=== PATIENT | female | born 1945 | race Caucasian/White ===

== ENCOUNTER 2022-07-07 08:40 | Outpatient (CLI) | payer MEDICARE ==
[2022-07-07 10:38] LABS: Hemoglobin 12.9 g/dL (12.0-15.5); Mean Corpuscular HGB CONC 32.1 g/dL (32.0-36.0); Mean Corpuscular Hemoglobin 29.1 pg (27.0-33.0); Mean Corpuscular Volume 90.5 fl (81.6-98.3); Mean Platelet Volume 10.7 fl (7.4-10.4); Platelet Count 254 10x3/uL (150-450); Red Blood Cell (RBC) Count 4.44 10x6/uL (3.90-5.03); White Blood Cell (WBC) Count 9.1 10x3/uL (3.5-10.5)
[2022-07-07 10:45] LABS: Anion Gap 19 mmol/L (10-20); BUN (Urea Nitrogen) 23 mg/dL (9.8-20.1); Calc. Creatinine Clearance 0 mL/min (70-130); Calcium 9.5 mg/dL (7.8-10.44); Carbon Dioxide 21 mmol/L (23-31); Chloride 103 mmol/L (98-107); Estimated GFR 79; Glucose 92 mg/dL (83-110); Potassium 4.9 mmol/L (3.5-5.1); Sodium 138 mmol/L (136-145)
== END 2022-07-07 08:41 | disposition home or self-care (01) ==
LOC: CSHLAB 08:40
PROVIDERS: ATTEND Otolaryngology Plastic Surgery within the Head & Neck
DX: Z01.818 Encounter for other preprocedural examination (principal); R13.10 Dysphagia, unspecified; K14.8 Other diseases of tongue
CPT/HCPCS: 80048; 85027; 93005; 93010

== ENCOUNTER 2022-07-12 05:39 | Day surgery (SDC) | payer MEDICARE ==
[2022-07-07 10:45] VITALS: BMI 29.2
[2022-07-12] MEDS ORDERED: Oxymetazoline HCl 0.05% ( 15 ML ) ONE (06:34)
[2022-07-12] MEDS ORDERED: Lidocaine 4% Topical Sol 50 ML BOT ONE (06:34)
[2022-07-12] MEDS ORDERED: SUGAMMADEX SODIUM 200 MG/2 ML VIAL ONE (06:53)
[2022-07-12] MEDS ORDERED: Fentanyl 100 MCG/2 ML VIAL ONE (08:36)
[2022-07-12] MEDS ORDERED: Rocuronium Bromide 10 MG/ML (10ML VIAL) ONE (08:36)
[2022-07-12] MEDS ORDERED: Dexamethasone 20 MG/5 ML VIAL ONE (08:36)
[2022-07-12] MEDS ORDERED: Midazolam HCl 2 mg/2 ml Vial ONE (08:36)
[2022-07-12] MEDS ORDERED: Ondansetron PF 4 MG/2 ML Vial ONE (08:36)
[2022-07-12] MEDS ORDERED: PROPOFOL 20 ML ONE (08:36)
[2022-07-12] MEDS ORDERED: Lidocaine 1% PF 5 ML VIAL ONE (08:36)
[2022-07-12] MEDS ORDERED: Lidocaine 1% w/Epinephrine 1:100K 20 ML VIAL ONE (09:35)
== END 2022-07-12 11:20 | disposition home or self-care (01) ==
LOC: CSHSDC 05:39
PROVIDERS: ATTEND Otolaryngology Plastic Surgery within the Head & Neck
PROC: 0CB70ZZ Excision of Tongue, Open Approach (ICD-10-PCS; principal; 2022-07-12)
DX: C02.9 Malignant neoplasm of tongue, unspecified (principal); K14.8 Other diseases of tongue; K14.0 Glossitis; I10 Essential (primary) hypertension; F32.A Depression, unspecified; E11.9 Type 2 diabetes mellitus without complications; Z79.82 Long term (current) use of aspirin; Z79.84 Long term (current) use of oral hypoglycemic drugs; Z79.899 Other long term (current) drug therapy; Z85.3 Personal history of malignant neoplasm of breast
CPT/HCPCS: 36416; 88309; J1100; J2250; J2405; J2704; J3010

== ENCOUNTER 2022-09-15 08:40 | Outpatient (CLI) | payer MEDICARE ==
[2022-09-15 10:11] LABS: Hemoglobin 13.7 g/dL (12.0-15.5); Mean Corpuscular HGB CONC 32.5 g/dL (32.0-36.0); Mean Corpuscular Hemoglobin 29.1 pg (27.0-33.0); Mean Corpuscular Volume 89.6 fl (81.6-98.3); Mean Platelet Volume 9.8 fl (7.4-10.4); Platelet Count 274 10x3/uL (150-450); RBC Distribution Width 12.4 % (11.5-14.5); Red Blood Cell (RBC) Count 4.71 10x6/uL (3.90-5.03); White Blood Cell (WBC) Count 9.6 10x3/uL (3.5-10.5)
[2022-09-15 10:29] LABS: Anion Gap 20 mmol/L (10-20); BUN (Urea Nitrogen) 20 mg/dL (9.8-20.1); Calc. Creatinine Clearance 0 mL/min (70-130); Calcium 9.2 mg/dL (7.8-10.44); Carbon Dioxide 22 mmol/L (23-31); Chloride 103 mmol/L (98-107); Estimated GFR 63; Glucose 146 mg/dL (83-110); Potassium 4.8 mmol/L (3.5-5.1); Sodium 140 mmol/L (136-145)
== END 2022-09-15 08:41 | disposition home or self-care (01) ==
LOC: CSHLAB 08:40
PROVIDERS: ATTEND Otolaryngology Plastic Surgery within the Head & Neck
DX: Z01.818 Encounter for other preprocedural examination (principal); C02.9 Malignant neoplasm of tongue, unspecified
CPT/HCPCS: 80048; 85027; 93005; 93010